=== PATIENT | female | born 1990 | race African-American/Black ===

== ENCOUNTER 2016-07-09 06:27 | Emergency (ER) | payer MEDICAID ==
--- NOTE | 2016-07-09 07:39 | PD ---
HPI Chief Complaint Left leg numbness paresthesia Date Seen: Jul 09, 2016 Travel History International Travel<30 Days: No Contact w/Intl Traveler<30Days: No Known Affected Area: No History of Present Illness HPI This patient is 26-year-old black female at [address] Espinosa for care presents complaining of leg left leg numbness and the strange feelings paresthesias in that leg since 2 AM she says that she can walk on and normally but cannot put full weight on that leg feels that might give out she is not having pain in that extremity in all other extremities within normal limits baby is moving and normal heart rate tracing is reactive with no other is occasional contractions Para: 1 : 2 History Obstetric History Obstetric History One vaginal delivery Family History Family History: Negative Social History Alcohol Use: No Tobacco Use: No Substance Abuse: No Allergies-Medications (Allergen,Severity, Reaction): Coded Allergies: Latex (Verified Allergy, Severe, Hives, 12/04/15) Penicillin (Verified Allergy, Intermediate, RASH, 12/04/15) Amoxicillin (Verified Allergy, Mild, Rash, 12/04/15) Home Meds No Active Prescriptions or Reported Meds Review of Systems General / Constitutional: No: Fever, Weight Gain, Chills, Other Eyes: No: Diploplia, Blurred Vision, Visual changes, Pain, Photophobia HENT: No: Headaches, Vertigo, Lightheadedness Cardiovascular: No: Irregular Rhythm, Chest Pain or Discomfort, Palpitations, Tachycardia, Syncope, Varicosities, Edema, Cyanosis Respiratory: No: Cough, Short of Breath, Other Gastrointestinal: No: Nausea, Vomiting, Diarrhea Genitourinary: No: Decreased Urinary Output, Oliguria Musculoskeletal: Weakness, No: Limited ROM, Cramping, Edema, Pain Skin: No Rash, No Itching, No Dryness, No Lumps, No Change in Pigmentation, No Change in Nails, No Alopecia, No Lesions Neurologic: Focal Abnormalities, No: Weakness, Dizziness, Syncope, Coordination Problem, Headache, Slurred Speech, Seizures Psychiatric: No: Depression, Suicidal Ideations, Homicidal Ideation Endocrine: No: Heat Intolerance, Cold Intolerance, Polydipsia, Polyuria, Other Physical Exam Narrative GENERAL: Well-nourished, well-developed patient. SKIN: Warm and dry. HEAD: Normocephalic and atraumatic. EYES: No scleral icterus. No injection or drainage. ENT: No nasal drainage noted. Mucous membranes pink. Airway patent. NECK: Supple, trachea midline. No JVD. CARDIOVASCULAR: Regular rate and rhythm without murmurs, gallops, or rubs. RESPIRATORY: Breath sounds equal bilaterally. No accessory muscle use. BREASTS: Bilateral exam showed no masses , no retractions, no nipple discharge. ABDOMEN/GI: Abdomen soft, non-tender, bowel sounds present, no rebound, no guarding Gravid to [36-] weeks size Fundal Height: [-35 cm] GENITOURINARY: External Genitalia: intact and normal in appearance BUS glands: [-] Cervix: [-] Dilatation: [1-] Effacement: [50-] Station: [-3] Presentation: [vtx-] Membranes: [intact ] Uterine Contractions: [-irreg] FHT's: Category: [1-] Baseline: [144-] Reactive: [-yes] Variability: [mod-] Decels: [none-] EXTREMITIES: No cyanosis or edema. She has normal pulses in both legs she can lift both legs with muscular strength that is approximately equal BACK: Nontender without obvious deformity. No CVA tenderness. NEUROLOGICAL: Awake and alert. Motor and sensory grossly within normal limits. Five out of 5 muscle strength in all muscle groups. Normal speech. MDM Interpretation(s) This patient is a 26-year-old black female at 37 weeks gestation who presents complaining of left leg numbness tingling paresthesias starting about 2 AM today, she states she's never had this before. From an OB standpoint she is cleared she is ashley irregularly when she is 1 cm 50% -3 vertex and her NST is reactive. And here on OB ED we have evaluated her extremities to the extent we are able she doesn't feel like she needs to go to the main emergency room for this,. That was offered to the patient to send her down for further evaluation. Plan She is to implement bedrest at home as much as she can of the next 2-3 days of heating pad on the affected extremity drink plenty of water to stay hydrated use Tylenol when necessary for discomfort and she is to see Dr. Espinosa on Tuesday which is and 3 days and if she is not improved she certainly will talk to him about that at that time. Diagnosis Diagnosis: Primary Impression: Left leg numbness Disposition: 01 DISCHARGE HOME Condition: Stable Scripts No Active Prescriptions or Reported Meds Patient Instructions: General Instructions Departure Forms: Tests/Procedures Sal Pacheco II, MD Jul 09, 2016 07:39
== END 2016-07-09 08:28 | disposition home or self-care (01) ==
LOC: HOBED 06:27
DX: O26.893 Other specified pregnancy related conditions, third trimester (principal); R20.0 Anesthesia of skin; Z3A.37 37 weeks gestation of pregnancy
CPT/HCPCS: 59025

== ENCOUNTER 2016-07-19 04:18 | Inpatient (IN) | payer MEDICAID ==
[~2016-07-19] VITALS: Ht 165.1 cm; Wt 61.2 kg
[2016-07-19] VITALS (33 sets, daily range): BP systolic 97–136; BP diastolic 54–90; PULSE 20–74; RESP 16–18; TEMP 97–98.3
[2016-07-19] MEDS ORDERED: LACTATED RINGER'S 1000 ML INJ 1,000 ML IV PRN (05:45)
[2016-07-19] MEDS ORDERED: MINERAL OIL 10 ML VIAL TOPICAL PRN (05:45)
[2016-07-19] MEDS ORDERED: LIDOCAINE HCL 1% 50 ML VIAL I-DERMAL PRN (05:45)
[2016-07-19] MEDS ORDERED: SODIUM CHLORID 0.9% 500 ML INJ 500 ML IV PRN (05:45)
[2016-07-19] MEDS ORDERED: OXYTOCIN 30 UNITS-500ML PREMIX 500 ML IV ONE (05:45)
[2016-07-19] MEDS ORDERED: CITRIC ACID-SODIUM CITRATE LIQ 30 ML UDC PO SCH (05:45)
[2016-07-19] MEDS ORDERED: LIDOCAINE HCL 1% 50 ML VIAL INFIL PRN (05:45)
--- NOTE | 2016-07-19 05:45 | HHI.HP ---
History & Physical H&P Patient Name: Maira Mack Unit Number: [id number] Date of : 1990 Patient Status: Registered Emergency Room Attending Doctor: Camacho Pop MD HPI HPI Chief Complaint Contractions Date Seen: Jul 19, 2016 Time Seen: 05:35 Travel History International Travel<30 Days: No Contact w/Intl Traveler<30Days: No Known Affected Area: No History of Present Illness HPI 26-year-old 2 para 1 at 39 weeks who was awakened by contractions. She denies leakage of fluid, bleeding, vaginal discharge or symptoms of herpes. Para: 1 : 2 History (Limited) History Past Medical History Narrative Medical Genital herpes for which she has been on acyclovir suppression for 1 month, no recent outbreaks Recent treatment in June for chlamydia Obstetric History Obstetric History One prior vaginal delivery care with Dr. Espinosa remarkable for positive chlamydia on June 21 which was treated, history of genital herpes for which she is on suppression, she received RhoGAM at 28 weeks for prophylaxis Labs: Rh-, rubella immune, RPR nonreactive, hepatitis B negative, HIV negative, normal 1 hour, hemoglobin 11 Past Surgical History Surgical History: No Previous Surgery Family History Family History: Negative Social History Alcohol Use: No Tobacco Use: Yes (none 1 month) Substance Abuse: No Allergies-Medications Allergies-Medications (Allergen,Severity, Reaction): Coded Allergies: Latex (Verified Allergy, Severe, Hives, 12/04/15) Penicillin (Verified Allergy, Intermediate, RASH, 12/04/15) Amoxicillin (Verified Allergy, Mild, Rash, 12/04/15) Home Meds No Active Prescriptions or Reported Meds ROS Review of Systems Except as stated in HPI: all other systems reviewed are Neg Physical Exam Physical Exam Narrative GENERAL: Well-nourished, well-developed patient. SKIN: Warm and dry. HEAD: Normocephalic and atraumatic. EYES: No scleral icterus. No injection or drainage. ENT: No nasal drainage noted. Mucous membranes pink. Airway patent. NECK: Supple, trachea midline. No JVD. CARDIOVASCULAR: Regular rate and rhythm without murmurs, gallops, or rubs. RESPIRATORY: Breath sounds equal bilaterally. No accessory muscle use. ABDOMEN/GI: Abdomen soft, non-tender, bowel sounds present, no rebound, no guarding Gravid to [-] weeks size Fundal Height: [-] GENITOURINARY: External Genitalia: intact and normal in appearance BUS glands: [-] Cervix: [-] Dilatation: [3-] Effacement: [-80] Station: [0-] Presentation: [-Vertex] Membranes: [intact Uterine Contractions: [Every 2-3-] FHT's: Category: [1-] Baseline: [-] Reactive: [-] Variability: [-] Decels: [-] EXTREMITIES: No cyanosis or edema. BACK: Nontender without obvious deformity. No CVA tenderness. NEUROLOGICAL: Awake and alert. Motor and sensory grossly within normal limits. Five out of 5 muscle strength in all muscle groups. Normal speech. Data Data Data Vital Signs Reviewed: Yes MDM MDM Medical Record Reviewed: Yes Narrative Course / MDM Assessment: 26-year-old 2 para 1 at 39 weeks in early labor Plan: Admit for labor management Scripts No Active Prescriptions or Reported Meds Camacho Pop MD Jul 19, 2016 05:44 Camacho Pop MD Jul 19, 2016 05:45
[2016-07-19] MEDS ORDERED: SODIUM CHLOR 0.9% 1000 ML INJ 1,000 ML IV PRN (06:05)
[2016-07-19] MEDS ORDERED: CALNTAB (06:10)
[2016-07-19] MEDS ORDERED: ACYC400T PO (06:10)
[2016-07-19 06:20] LABS: BLOOD, URINE NEG (NEG); GLUCOSE,URINE NEG (NEG); KETONE, URINE NEG (NEG); MUCUS URINE FEW /lpf (OCC); NITRITE,URINE NEG (NEG); PH, URINE 7.5 (5.0-8.5); SQUAMOUS EPITHELIAL CELL URINE 1 /hpf (0-5); TRANSITIONAL EPI CELLS, URINE <1 /hpf; URINE COLOR LIGHT-YELLOW (YELLW/STRAW)
[2016-07-19 06:21] LABS: COMMENT (UR) CULT NOT INDICATED; CULTURE IF INDICATED CULT NOT INDICATED
[2016-07-19] MEDS: LACTATED RINGER'S 1000 ML INJ 1,000 ML IV SCH ×2 (06:25→09:20)
[2016-07-19 06:50] LABS: AUTOMATED NEUTROPHIL # 10.8 TH/MM3 (1.8-7.7); BASOPHIL % 0.1 % (0.0-2.0); EOSINOPHIL # 0.2 TH/MM3 (0-0.4); HEMATOCRIT 35.4 % (35.0-46.0); HEMO FLAGS DIFF FINAL; LYMPH % 17.5 % (9.0-44.0); LYMPHOCYTE # 2.6 TH/MM3 (1.0-4.8); MEAN CELL VOLUME 85.7 FL (80.0-100.0); MEAN CORPUSCULAR HEMOGLOBIN 28.7 PG (27.0-34.0); MEAN CORPUSCULAR HGB CONC 33.5 % (32.0-36.0); MONO % 9.7 % (0.0-8.0); NEUT % 71.7 % (16.0-70.0); PLATELET COUNT 205 TH/MM3 (150-450); RED BLOOD COUNT 4.13 MIL/MM3 (4.00-5.30); RED CELL DISTRIBUTION WIDTH 13.3 % (11.6-17.2)
--- NOTE | 2016-07-19 08:41 | PD.LABORPN ---
Subjective Subjective pat came in labor at 38 weeks. GBS neg and Chlamydia neg and HSV on Symptoms Objective Vital Signs Vital Signs Date Time Temp Pulse Resp B/P Pulse Ox O2 Delivery O2 Flow Rate FiO2 07/19/16 08:17 68 107/64 07/19/16 08:15 20 16 07/19/16 07:00 66 100/62 07/19/16 06:59 97.6 18 Objective Pelvic Exam: Cervix: [-] Dilatation: 3 Effacement: 70 Station: -2 Presentation: vtx Membranes: SROM Uterine Contractions: Q2 FHT's: Category: 1 Baseline: [-] Reactive: [-] Variability: [-] Decels: [-] Assessment/Plan Assessment and Plan 38 week IUP AROM meconium moderate Shahzad Wong MD Jul 19, 2016 08:41
[2016-07-19] MEDS ORDERED: OXYTOCIN 30 UNITS-500ML PREMIX 500 ML IV SCH (09:00)
[2016-07-19 11:30] LABS: AMPHETAMINE, URINE NEG (NEG); BARBITURATES, URINE NEG (NEG); COCAINE, URINE NEG (NEG)
[2016-07-19] MEDS ORDERED: fentaNYL 2MCG-BUPIV 0.125% INJ 100 ML ONE (11:50)
--- NOTE | 2016-07-19 13:10 | PD.OB.DELI ---
Delivery Date: Jul 19, 2016 Anesthesia: Epidural Episiotomy: None Vaginal Delivery: Normal, Spontaneous Presentation: Occiput anterior Nuchal Cord: None Delayed cord clamping (45 sec): Yes : Female, Single One Minute : 9 Five Minute : 9 Care: Responded to stimulation Placenta: Spontaneous delivery, Intact, 3 vessel cord Laceration: No lacerations Shahzad Wong MD Jul 19, 2016 13:10
[2016-07-19] MEDS ORDERED: ONDANSETRON ODT 4 MG TAB PO PRN (13:15)
[2016-07-19] MEDS ORDERED: ALUMINUM/MAGNESIUM/SIMETH 30 ML CUP PO PRN (13:15)
[2016-07-19] MEDS ORDERED: WITCH HAZEL 50%/GLYCERIN 12.5% 40 PAD JAR TOPICAL PRN (13:15)
[2016-07-19] MEDS ORDERED: SODIUM CHLORIDE 0.9% FLUSH 5 ML FLUSH IV PRN (13:15)
[2016-07-19] MEDS ORDERED: BENZOCAINE 20% TOPICAL SPRAY 60 ML CAN TOPICAL PRN (13:15)
[2016-07-19] MEDS ORDERED: ZOLPIDEM TARTRATE 5 MG TAB PO PRN (13:15)
[2016-07-19 14:05] LABS: CHLAMYDIA PCR NOT DETECTED (NOT DETECT); NEISSERIA PCR NOT DETECTED (NOT DETECT)
[2016-07-19] MEDS ORDERED: DIPHTH/TETANUS/ACEL PERTUSSIS (BOOSTER) 0.5 ML VIAL/PFS IM ONE ×2 (16:00→20:30)
[2016-07-19] MEDS ORDERED: fentaNYL 2MCG-BUPIV 0.125% INJ 100 ML EPIDURAL SCH (16:00)
[2016-07-19] MEDS ORDERED: DO NOT ADMINISTER ANTICOAGULANTS XX PRN (16:00)
[2016-07-19] MEDS ORDERED: NO SYSTEM NARCOTICS XX PRN (16:00)
[2016-07-19] MEDS ORDERED: ePHEDrine/NS 50 MG/5 ML SYR IV PRN (16:00)
[2016-07-19] MEDS ORDERED: MEASLES, MUMPS, RUBELLA VACCINE 0.5 ML VIAL SQ ONE (16:00)
[2016-07-19] MEDS: IBUPROFEN 600 MG TAB PO PRN (17:21)
[2016-07-19] MEDS: ACETAMINOPHEN 325 MG TAB PO PRN (20:10)
[2016-07-19] MEDS ORDERED: SODIUM CHLORIDE 0.9% FLUSH 5 ML FLUSH IV SCH (21:00)
[2016-07-20] MEDS: IBUPROFEN 600 MG TAB PO PRN ×2 (00:35→07:50)
[2016-07-20] MEDS: ACETAMINOPHEN 325 MG TAB PO PRN (07:50)
[2016-07-20] MEDS: DOCUSATE SODIUM 50 MG/SENNA 8.6 MG TAB PO PRN (07:50)
[2016-07-20 08:00] VITALS: BP 105/60; PULSE 59; RESP 16; TEMP 98
--- NOTE | 2016-07-20 09:51 | HHI.OB ---
Subjective Post Day: 1 Remarks doing well Objective Vitals/I&O Vital Signs Date Time Temp Pulse Resp B/P Pulse Ox O2 Delivery O2 Flow Rate FiO2 07/20/16 08:00 98.0 59 16 105/60 07/19/16 19:45 98.3 66 18 122/69 07/19/16 15:40 97.9 69 18 97/60 07/19/16 14:30 61 114/68 07/19/16 14:15 71 115/89 07/19/16 14:02 18 07/19/16 14:01 66 114/67 07/19/16 13:15 97.0 07/19/16 13:09 18 07/19/16 13:01 71 111/71 07/19/16 12:30 72 07/19/16 12:30 69 124/79 07/19/16 12:25 71 122/63 07/19/16 12:25 73 07/19/16 12:20 68 07/19/16 12:20 71 122/66 07/19/16 12:17 16 07/19/16 12:15 128/74 07/19/16 12:15 71 07/19/16 12:11 66 124/68 07/19/16 12:10 136/79 07/19/16 12:10 67 07/19/16 12:05 71 07/19/16 12:05 133/79 07/19/16 12:00 67 124/90 07/19/16 11:55 72 07/19/16 11:55 123/81 07/19/16 11:52 66 121/74 07/19/16 11:24 67 114/71 07/19/16 11:21 97.8 07/19/16 11:21 18 07/19/16 10:53 18 07/19/16 10:45 18 07/19/16 10:41 63 108/68 07/19/16 10:15 16 07/19/16 10:02 74 98/54 Objective Remarks GENERAL: Well-nourished, well-developed patient. ABDOMEN/GI: Abdomen soft, non-tender. Fundus: Firm, non-tender at umbilicus. GENITOURINARY: Light to moderate bleeding. EXTREMITIES: No cyanosis or edema, non-tender, without signs of DVT. Medications and IVs Current Medications Medications (Trade) Dose Ordered Sig/Vance Route Start Time Stop Time Status Last Admin (NS Flush) 2 ml BID IV 07/19/16 21:00 (NS Flush) 2 ml UNSCH PRN IV 07/19/16 13:15 (Tylenol) 650 mg Q4H PRN PO 07/19/16 13:15 07/20/16 07:50 (Motrin) 600 mg Q6H PRN PO 07/19/16 13:15 07/20/16 07:50 (Americaine 20% Top Spr) 1 spray Q4H PRN TOPICAL 07/19/16 13:15 07/20/16 07:50 (Tucks Pads) 1 applic QID PRN TOPICAL 07/19/16 13:15 07/20/16 07:50 (Leatha-Colace) 2 tab Q12H PRN PO 07/19/16 13:15 07/20/16 07:50 (Ambien) 5 mg HS PRN PO 07/19/16 13:15 (Mag-Al Plus Susp Liq) 15 ml Q8H PRN PO 07/19/16 13:15 (Zofran Odt) 4 mg Q6H PRN PO 07/19/16 13:15 Miscellaneous Information No systemic narcotics to be given except... UNSCH PRN XX 07/19/16 16:00 07/20/16 15:59 Miscellaneous Information DO NOT ADMINISTER ANY ANTICOAGUL... UNSCH PRN XX 07/19/16 16:00 07/20/16 15:59 (fentaNYL 2MCG-BUPIV 0.125% INJ) 100 ml @ 0 mls/hr TITRATE EPIDURAL 07/19/16 16:00 (ePHEDrine/NS 50 MG/5 ML SYR) 10 mg UNSCH PRN IV 07/19/16 16:00 07/20/16 15:59 (Flu (Quadrivalent) Vaccine Inj) 0.5 ml ONCE ONCE IM 07/20/16 10:00 07/20/16 10:01 07/19/16 20:59 Assessment/Plan Problem List: (1) Spontaneous vaginal delivery Discharge Planning doing well Shahzad Wong MD Jul 20, 2016 09:51
--- NOTE | 2016-07-20 09:52 | HHI.DCPOC ---
Discharge Care Plan Diagnosis: (1) Spontaneous vaginal delivery Report Symptoms to Your Doctor -Temperate above 100.5 degrees -Redness, of incision or excessive or foul smelling drainage -Unusual pain or calf pain -Increased vaginal bleeding -Painful or difficulty urinating -Feelings of extreme sadness or anxiety after 2 weeks Goals to Promote Your Health * To prevent worsening of your condition and complications * To maintain your health at the optimal level Directions to Meet Your Goals Take your medications as prescribed Follow your dietary instruction Follow activity as directed Ensure plenty of rest for recovery Drink fluids for hydration Keep your appointments as scheduled Take your immunizations and boosters as scheduled If your symptoms worsen call your PCP, if no PCP go to Urgent Care Center or Emergency Room Smoking is Dangerous to Your Health. Avoid second hand smoke Call the 24-hour crisis hotline for domestic abuse at Shahzad Wong MD Jul 20, 2016 09:52
[2016-07-20] MEDS ORDERED: INFLUENZA VIRUS VACCINE (QUADRIVALENT) 0.5 ML SYR IM ONE (10:00)
[2016-07-20] MEDS: oxyCODONE/ACETAMINOPHEN 5 MG/325 MG TAB PO PRN ×3 (12:05→20:36)
[2016-07-20] MEDS: IBUPROFEN 800 MG TAB PO PRN ×2 (13:53→20:37)
[2016-07-20 19:17] VITALS: BP 98/56; PULSE 72; RESP 18; TEMP 98.2
[2016-07-21] MEDS: IBUPROFEN 800 MG TAB PO PRN ×2 (02:37→09:05)
[2016-07-21] MEDS: oxyCODONE/ACETAMINOPHEN 5 MG/325 MG TAB PO PRN ×2 (02:37→09:05)
[2016-07-21] MEDS: DOCUSATE SODIUM 50 MG/SENNA 8.6 MG TAB PO PRN (02:38)
--- NOTE | 2016-07-21 08:07 | HHI.OB ---
Subjective Post Day: 2 Remarks doing well Objective Vitals/I&O Vital Signs Date Time Temp Pulse Resp B/P Pulse Ox O2 Delivery O2 Flow Rate FiO2 07/20/16 19:17 98.2 72 18 98/56 Objective Remarks GENERAL: Well-nourished, well-developed patient. ABDOMEN/GI: Abdomen soft, non-tender. Fundus: Firm, non-tender at umbilicus. GENITOURINARY: Light to moderate bleeding. EXTREMITIES: No cyanosis or edema, non-tender, without signs of DVT. Medications and IVs Current Medications Medications (Trade) Dose Ordered Sig/Vance Route Start Time Stop Time Status Last Admin (NS Flush) 2 ml BID IV 07/19/16 21:00 (NS Flush) 2 ml UNSCH PRN IV 07/19/16 13:15 (Tylenol) 650 mg Q4H PRN PO 07/19/16 13:15 07/20/16 07:50 (Americaine 20% Top Spr) 1 spray Q4H PRN TOPICAL 07/19/16 13:15 07/20/16 07:50 (Tucks Pads) 1 applic QID PRN TOPICAL 07/19/16 13:15 07/20/16 07:50 (Leatha-Colace) 2 tab Q12H PRN PO 07/19/16 13:15 07/21/16 02:38 (Ambien) 5 mg HS PRN PO 07/19/16 13:15 (Mag-Al Plus Susp Liq) 15 ml Q8H PRN PO 07/19/16 13:15 Ondansetron HCl 4 mg 4 mg Q6H PRN PO 07/19/16 13:15 (fentaNYL 2MCG-BUPIV 0.125% INJ) 100 ml @ 0 mls/hr TITRATE EPIDURAL 07/19/16 16:00 (Motrin) 800 mg Q6H PRN PO 07/20/16 13:15 07/21/16 02:37 (Percocet 5-325 Mg) 1 tab Q4H PRN PO 07/20/16 10:00 07/21/16 02:37 Assessment/Plan Problem List: (1) Spontaneous vaginal delivery Discharge Planning [facility] Shahzad Wong MD Jul 21, 2016 08:07
[2016-07-21] MEDS ORDERED: OXYC1TAB63 PO (08:08)
--- NOTE | 2016-07-21 08:10 | HHI.DS ---
Admission Date Jul 19, 2016 at 05:37 Discharge Date: Jul 21, 2016 Admitting Diagnosis Diagnosis: (1) Spontaneous vaginal delivery Diagnosis: Principal Delivery Date: Jul 19, 2016 Vaginal Delivery: Normal, Spontaneous Infant: Female, Single Brief History 26-year-old 2 para 1 at 39 weeks who was awakened by contractions. She denies leakage of fluid, bleeding, vaginal discharge or symptoms of herpes. Hospital Course doing well then 2 days PP stable for DC home Pt Condition on Discharge: Good Discharge Disposition: Discharge Home Discharge Instructions Diet Instructions: As Tolerated, No Restrictions Activities You Can Perform: Pelvic Rest Activities to Avoid: Driving for 24 hrs Follow up Referrals: [facility] - 2 Weeks @ [facility] with Shahzad Wong MD New Medications: Oxycodone-Acetaminophen (Oxycodone-Acetaminophen) 5-325 mg Tab 1 TAB PO Q4H PRN PAIN SCALE 1 TO 10 #20 TAB Continued Medications: Vitamin (Calna) 1 Tab Tab 1 DAILY Discontinued Medications: Acyclovir (Acyclovir) 400 Mg Tab 400 MG PO BID Mgmt Viral Infection Ref 0 TAB Shahzad Wong MD Jul 21, 2016 08:09
[2016-07-21 09:03] VITALS: BP 102/67; PULSE 74; RESP 16; TEMP 98
== END 2016-07-21 11:47 | disposition home or self-care (01) | DRG 774 ==
LOC: HOBED 04:18 → H2EB 05:37 → H1EA 15:14
PROVIDERS: ADMIT Obstetrics & Gynecology; ATTEND Obstetrics & Gynecology
PROC: 10E0XZZ Delivery of Products of Conception, External Approach (ICD-10-PCS; principal; 2016-07-19)
PROC: 3E0S3CZ (ICD-10-PCS; 2016-07-19)
PROC: 00HU33Z Insertion of Infusion Device into Spinal Canal, Percutaneous Approach (ICD-10-PCS; 2016-07-19)
DX: O98.32 Other infections with a predominantly sexual mode of transmission complicating childbirth (principal); O98.813 Other maternal infectious and parasitic diseases complicating pregnancy, third trimester; A60.00 Herpesviral infection of urogenital system, unspecified; O77.0 Labor and delivery complicated by meconium in amniotic fluid; O99.333 Smoking (tobacco) complicating pregnancy, third trimester; Z3A.39 39 weeks gestation of pregnancy; Z37.0 Single live birth; Z23 Encounter for immunization
CPT/HCPCS: 80307; 81001; 85025; 86900; 86901; 87491; 87591; 90686; 90715; 99285; J2590; J3010; J7120; Q2038

== ENCOUNTER 2016-08-19 00:07 | Emergency (ER) | payer MEDICAID ==
[~2016-08-19] VITALS: Ht 162.6 cm; Wt 54.0 kg
[~2016-08-19 00:07] MED LIST: CALNTAB; OXYC1TAB63 PO
[2016-08-19 00:12] VITALS: BP 117/72; PULSE 81; RESP 14; TEMP 97.5; O2SAT 96
[2016-08-19] MEDS ORDERED: SERT-132 PO (00:42)
--- NOTE | 2016-08-19 00:49 | PD ---
HPI Chief Complaint: Injury Time Seen by Provider: 00:45 Travel History International Travel<30 days: No Contact w/Intl Traveler<30days: No Traveled to known affect area: No History of Present Illness HPI Patient comes in complaining of left foot pain that began Tuesday night when she tripped running up some stairs. Patient states yesterday it started becoming red and inflamed. Patient tried soaking in Epsom salts minimal to no relief of her symptoms. Patient reports it iced as help with her pain. Patient reports pain is primarily over the lateral aspect of her left foot is aching burning in nature. Pain is worse with standing or walking. Denies any numbness or tingling, fevers, drug use, , or other known trauma. PFSH Past Medical History Anxiety: Yes Depression: Yes (POST DEPRESSION) Diminished Hearing: No Genitourinary: Yes (GENITAL HERPES) Integumentary: Yes ?: Not LMP: DELIVERED 07/19/16 : 1 Para: 1 Miscarriage: 0 : 0 Ectopic : No Ovarian Cysts: No Tubal Ligation: No Past Surgical History Hysterectomy: No Social History Alcohol Use: Yes (SOCIALLY) Tobacco Use: Yes (1/2PPD) Substance Use: No Allergies-Medications (Allergen,Severity, Reaction): Coded Allergies: Latex (Verified Allergy, Severe, Hives, 08/19/16) Penicillin (Verified Allergy, Intermediate, RASH, 08/19/16) Amoxicillin (Verified Allergy, Mild, Rash, 08/19/16) Reported Meds & Prescriptions Reported Meds & Active Scripts Active Ibuprofen 800 Mg Tab 800 Mg PO Q8H PRN Bactrim DS (Sulfamethoxazole-Trimethoprim) 800-160 Mg Tab 1 Tab PO BID Reported Sertraline (Sertraline HCl) 50 Mg Tab 50 Mg PO DAILY Review of Systems Except as stated in HPI: all other systems reviewed are Neg Physical Exam Narrative GENERAL: Well-developed, well nourished, in no acute distress, and non-ill appearing. SKIN: Warm and dry. Patient area of the dorsal aspect of her left foot is erythematous and febrile to palpation. There is no crepitus, induration, or fluctuation. It is tender to palpation. Patient also has noted what appears to be tract miller versus bug bites versus other noted bilateral feet dorsal aspect. There is also a small abrasion noted over the distal fifth metatarsal dorsal aspect. HEAD: Atraumatic. Normocephalic. EYES: Pupils equal and round. EOMI. No scleral icterus. No injection or drainage. ENT: No nasal bleeding or discharge. Mucous membranes pink and moist. NECK: Trachea midline. Supple. No nuclear rigidity. CARDIOVASCULAR: Dorsal pulses 2+ intact and equal bilaterally. Capillary refill less than 2 seconds. RESPIRATORY: No accessory muscle use. No respiratory distress. MUSCULOSKELETAL: No obvious deformities. No clubbing. No cyanosis. No edema, but some soft tissue swelling over the dorsal aspect left foot. Full range of motion. Ankle: Neagative anterior draw and Figueredo test. Negative Nicolle's sign. No laxity noted with passive inversion and eversion of BL ankles. Negative squeeze test. Pulses equal BL distal to injury. Capillary refill less than 2 seconds distal to injury and equal BL. Sensation equal BL 1st web space. FROM of toes distal to injury and equal BL. NV intact distal to injury and equal BL. Dorsal pulses equal BL. Patient reports tenderness to palpation of dorsal aspect left foot over fourth and fifth metatarsals. NEUROLOGICAL: Awake and alert. No obvious cranial nerve deficits. Motor grossly within normal limits. Normal speech. PSYCHIATRIC: Appropriate mood and affect; insight and judgment normal. Data Data Last Documented VS Vital Signs Date Time Temp Pulse Resp B/P Pulse Ox O2 Delivery O2 Flow Rate FiO2 08/19/16 00:42 16 08/19/16 00:12 97.5 81 117/72 96 Room Air Orders Foot, Complete (Jur2azp) (08/19/16 ) Ibuprofen (Motrin) (08/19/16 01:15) Sulfamet-Trimeth Ds 800-160 Mg (Bactrim (08/19/16 01:15) Splint Or Brace Apply/Monitor (08/19/16 01:30) [facility] Medical Decision Making Medical Screen Exam Complete: Yes Emergency Medical Condition: Yes Differential Diagnosis Fracture, sprain, cellulitis, abscess, other Narrative Course The patient sustained a fracture. The distal extremity appears neurovascularly intact, without evidence of neurovascular injury nor compartment syndrome. Tendon exam also was intact. The effected limb was splinted. The patient was discharged on pain medication along with fracture and splint care instructions and given warnings for vascular compromise. The patient is was given strict instructions to follow up with maintenance technician. The patient agrees with plan. The patient has secondary infection of cellulitis. There is no evidence of necrotizing fasciitis/ Fourniers at this time, pain is proportional and no crepitus is noted. There is no evidence of abscess as well at this time. The patient will be discharged on antibiotics. The patient was given signs and symptoms warnings for worsening infection, such as spreading of redness, increasing pain, and/or swelling, associated heat, or fever and instructed to return immediately if these signs or symptoms worsen. The patient is to follow up with physician in 2 days for recheck or return here in 2 days for recheck if unable to establish outpatient follow up. Sooner if worsens or as needed. The patient agrees with plan. Area was outlined with skin marking pen by RN prior to discharge. Patient in no obvious distress upon re-evaluation. All pertinent Radiology result(s) discussed with patient. Patient was asked if they wanted to speak to my attending, which the patient did not wish to do at this time. Any questions/ concerns in reference to patient diagnosis/condition discussed and clarified prior to patient's discharge. Reinforced sheer importance of close follow up with patient's primary physician or primary care clinic and maintenance technician. Instructed patient to return to ED immediately, if symptoms return/worsen. Pt showed understanding of above instructions. Further instructions and recommendations were detailed in discharge paperwork. Pt ambulated without difficulty out of ED at discharge with crutches. Diagnosis Primary Impression: Hebert fracture Qualified Code: S92.352A - Hebert fracture, left, closed, initial encounter Additional Impression: Cellulitis Qualified Code: L03.818 - Cellulitis of other specified site Referrals: Aida Lopez DPM Patient Instructions: Cellulitis (GEN), Crutch Instructions (ED), Foot Fracture in Adults (ED), General Instructions, Splint Care (ED) Additional Instructions: Follow-up with podiatry in 24-48 hours for reevaluation. Follow with primary care doctor return here in 2 days for recheck of cellulitis. Weightbearing as tolerated on your left foot. Apply ice to affected area 20 minutes per hour as needed for pain and swelling. Take all medication as prescribed. Return to the emergency department if symptoms get worse. Med/Other Pt SpecificInfo: Prescription(s) given Scripts Ibuprofen 800 Mg [id number] Mg PO Q8H PRN (PAIN SCALE 1 TO 10) #21 TAB Ref 0 Prov:Constantine El MD 08/19/16 Sulfamethoxazole-Trimethoprim (Bactrim DS)800-160 Mg Tab1 Tab PO BID #20 TAB Ref 0 Prov:Constantine El MD 08/19/16 Disposition: 01 DISCHARGE HOME Condition: Stable Jeff Perez Aug 19, 2016 00:49
[2016-08-19] MEDS ORDERED: SULFAMETHOXAZOLE-TRIMETHOPRIM DS 800-160 MG TAB PO ONE (01:15)
[2016-08-19] MEDS ORDERED: IBUPROFEN 800 MG TAB PO ONE (01:15)
--- NOTE | 2016-08-19 01:24 | RADRPT ---
EXAM DATE/TIME: 08/19/2016 00:44 [facility] COMPARISON: No previous studies available for comparison. INDICATIONS : Left foot pain and swelling post twisting motion as falling down a set of stairs. MEDICAL HISTORY : None. SURGICAL HISTORY : None. ENCOUNTER: Initial ACUITY: 2 days PAIN SCORE: 6/10 LOCATION: Left foot FINDINGS: Three view examination of the left foot demonstrates avulsion fracture of the base of the fifth metat arsal with approximately 9 mm of displacement. CONCLUSION: Displaced Alexei's type fracture at the base of the fifth metatarsal. Montez Garcia MD on August 19, 2016 at 1:21 Board Certified Radiologist. This report was verified electronically.
[2016-08-19] MEDS ORDERED: IBUP800T23 PO (01:34)
[2016-08-19] MEDS ORDERED: BACT800T5 PO (01:34)
== END 2016-08-19 01:43 | disposition home or self-care (01) ==
LOC: NEPB 00:07
DX: S92.352A Displaced fracture of fifth metatarsal bone, left foot, initial encounter for closed fracture (principal); L03.818 Cellulitis of other sites; F17.210 Nicotine dependence, cigarettes, uncomplicated; W18.43XA Slipping, tripping and stumbling without falling due to stepping from one level to another, initial encounter; Y92.009 Unspecified place in unspecified non-institutional (private) residence as the place of occurrence of the external cause
CPT/HCPCS: 73630; 99283; E0113; L3260

== ENCOUNTER 2016-08-19 12:34 | Emergency (ER) | payer MEDICAID ==
[~2016-08-19] VITALS: Ht 162.6 cm; Wt 55.0 kg
[~2016-08-19 12:34] MED LIST changes: +BACT800T5 PO; +IBUP800T23 PO; +SERT-132 PO
[2016-08-19 12:35] VITALS: BP 111/60; PULSE 75; RESP 14; TEMP 98.1; O2SAT 98
--- NOTE | 2016-08-19 13:20 | PD ---
HPI Chief Complaint: Injury Time Seen by Provider: 13:14 Travel History International Travel<30 days: No Contact w/Intl Traveler<30days: No Traveled to known affect area: No History of Present Illness HPI 26-year-old female presents to the emergency department for splint placement. Patient was seen last night was diagnosed with a Hebert fracture that is displaced. At that time, she was placed in a postop shoe. However, was determined that she should be in a posterior short leg splint. The patient returns to have splint placed. She denies any new or worsening symptoms. She denies any new injury. She states that she will follow generator man. She has crutches and has been nonweightbearing. PFSH Past Medical History Anxiety: Yes Depression: Yes (POST DEPRESSION) Diminished Hearing: No Genitourinary: Yes (GENITAL HERPES) Integumentary: Yes ?: Not LMP: 08/2016 : 1 Para: 1 Miscarriage: 0 : 0 Ectopic : No Ovarian Cysts: No Tubal Ligation: No Past Surgical History Hysterectomy: No Social History Alcohol Use: Yes (SOCIALLY) Tobacco Use: Yes (1/2PPD) Substance Use: No Allergies-Medications (Allergen,Severity, Reaction): Coded Allergies: Latex (Verified Allergy, Severe, Hives, 08/19/16) Penicillin (Verified Allergy, Intermediate, RASH, 08/19/16) Amoxicillin (Verified Allergy, Mild, Rash, 08/19/16) Reported Meds & Prescriptions Reported Meds & Active Scripts Active Ibuprofen 800 Mg Tab 800 Mg PO Q8H PRN Bactrim DS (Sulfamethoxazole-Trimethoprim) 800-160 Mg Tab 1 Tab PO BID Reported Sertraline (Sertraline HCl) 50 Mg Tab 50 Mg PO DAILY Review of Systems Except as stated in HPI: all other systems reviewed are Neg Physical Exam Narrative GENERAL: Well-developed well-nourished female patient, afebrile. SKIN: Warm and dry. Ecchymosis and swelling noted to left foot. HEAD: Normocephalic. Atraumatic. EYES: No scleral icterus. No injection or drainage. NECK: Supple, trachea midline. No JVD or lymphadenopathy. CARDIOVASCULAR: Regular rate and rhythm without murmurs, gallops, or rubs. RESPIRATORY: Breath sounds equal bilaterally. No accessory muscle use. Lungs sounds are clear to auscultation. MUSCULOSKELETAL: No cyanosis, or edema. Left pedal pulse 2+. Capillary refill less than 2 seconds to the digits of the left foot. Data Data Last Documented VS Vital Signs Date Time Temp Pulse Resp B/P Pulse Ox O2 Delivery O2 Flow Rate FiO2 08/19/16 12:35 98.1 75 14 111/60 98 MDM Medical Decision Making Medical Screen Exam Complete: Yes Emergency Medical Condition: Yes Medical Record Reviewed: Yes Differential Diagnosis Fracture versus splint placement versus versus Foot pain Narrative Course 26 year old female presents to the emergency department for splint placement to left foot. Patient was seen last night was placed in a postop shoe. However, it was determined she should be placed in a posterior short leg splint. The patient returns to have splint placed. She denies any new complaints. She has crutches and has been nonweightbearing. Posterior short leg still be placed on the left foot. She is to be nonweightbearing and follow up with podiatry. She verbalizes agreement and understanding. The patient was discharged in stable condition with instructions, including return instructions and follow up instructions. Diagnosis Primary Impression: Hebert fracture Qualified Code: S92.352D - Hebert fracture, left, with routine healing, subsequent encounter Referrals: Assistance Coordinator call for appointment Patient Instructions: Foot Fracture in Adults (ED), General Instructions Additional Instructions: Wear splint. Ice for 20 minutes 4-5 times daily. Do not get splint wet. Elevate. Use crutches and be nonweightbearing. Follow-up with podiatry. Return to the emergency department for any acute worsening of symptoms. Med/Other Pt SpecificInfo: No Change to Meds Disposition: 01 DISCHARGE HOME Condition: Stable Melinda Case Aug 19, 2016 13:20
== END 2016-08-19 14:42 | disposition home or self-care (01) ==
LOC: NEPB 12:34
DX: S92.352D Displaced fracture of fifth metatarsal bone, left foot, subsequent encounter for fracture with routine healing (principal); X58.XXXD Exposure to other specified factors, subsequent encounter
CPT/HCPCS: 29515; 99281

== ENCOUNTER 2017-02-08 12:55 | Emergency (ER) | payer MEDICAID ==
[~2017-02-08] VITALS: Ht 165.1 cm; Wt 55.0 kg
[~2017-02-08 12:55] MED LIST changes: -CALNTAB; -OXYC1TAB63 PO
[2017-02-08 12:57] VITALS: BP 118/58; PULSE 80; RESP 16; TEMP 98.4; O2SAT 99
--- NOTE | 2017-02-08 13:07 | PD ---
Physical Exam Time Seen by Provider: 13:04 Narrative 27yo C/o sharp kidney pain ion and off x 1 week. Had urinalysis this morning but was told by Dr. Wong to come to ER if pain worsened. [place] dc, odor, itch. Has been on her period since September. Fever of 101.8 last night. Denies fever. Patient seen in triage. VS reviewed. Patient awaiting bed placement. Data Data Last Documented VS Vital Signs Date Time Temp Pulse Resp B/P (MAP) Pulse Ox O2 Delivery O2 Flow Rate FiO2 02/08/17 12:57 98.4 80 16 118/58 (78) 99 MDM Supervised Visit with RADHA: Susana Borrero Feb 08, 2017 13:07
[2017-02-08 14:33] LABS: AUTOMATED NEUTROPHIL # 4.8 TH/MM3 (1.8-7.7); BASOPHIL % 0.3 % (0.0-2.0); EOSINOPHIL # 0.1 TH/MM3 (0-0.4); EOSINOPHIL % 1.4 % (0.0-4.0); HEMATOCRIT 42.1 % (35.0-46.0); HEMO FLAGS DIFF FINAL; LYMPH % 22.6 % (9.0-44.0); LYMPHOCYTE # 1.7 TH/MM3 (1.0-4.8); MEAN CORPUSCULAR HEMOGLOBIN 29.8 PG (27.0-34.0); MEAN CORPUSCULAR HGB CONC 32.5 % (32.0-36.0); MONO % 10.5 % (0.0-8.0); NEUT % 65.2 % (16.0-70.0); PLATELET COUNT 295 TH/MM3 (150-450); RED BLOOD COUNT 4.57 MIL/MM3 (4.00-5.30); RED CELL DISTRIBUTION WIDTH 14.6 % (11.6-17.2); WHITE BLOOD COUNT 7.3 TH/MM3 (4.0-11.0)
[2017-02-08 14:37] LABS: BLOOD, URINE MOD (NEG); GLUCOSE,URINE NEG (NEG); KETONE, URINE NEG (NEG); NITRITE,URINE NEG (NEG); PH, URINE 6.5 (5.0-8.5); SQUAMOUS EPITHELIAL CELL URINE 1 /hpf (0-5); URINE COLOR LIGHT-YELLOW (YELLW/STRAW)
[2017-02-08 14:39] LABS: COMMENT (UR) CULT NOT INDICATED; CULTURE IF INDICATED CULT NOT INDICATED
--- NOTE | 2017-02-08 14:45 | PD ---
HPI Chief Complaint: Flank/Kidney Pain Time Seen by Provider: 14:44 Travel History International Travel<30 days: No Contact w/Intl Traveler<30days: No Traveled to known affect area: No History of Present Illness HPI 27-year-old female came to the emergency room with history of lower backache on and off for past 1 week and intermittent vaginal bleeding for some time. Patient says that she has an implant in her arm for control and she thinks she could be reacting from that. Her CONCESSION WORKER will have it taken out in few days but he wanted her to come to the emergency room to get a workup done to rule out anything medical. No history of fever or chills. No history of nausea vomiting. No history of foul-smelling vaginal discharge. Vital signs were stable. Patient had a workup done in the triage prior to coming in. Blood test results of back and they're within normal limits. Patient says she has not had this kind of pain prior to this past 1 week. PFSH Past Medical History Narrative Medical List of her past medical, surgical, social and family history is reviewed from the nursing note. Anxiety: Yes Depression: Yes (POST DEPRESSION) Diminished Hearing: No Genitourinary: Yes (GENITAL HERPES) Integumentary: Yes : 1 Para: 1 Miscarriage: 0 : 0 Ectopic : No Ovarian Cysts: No Tubal Ligation: No Past Surgical History Hysterectomy: No Social History Alcohol Use: Yes (SOCIALLY) Tobacco Use: Yes (1/2PPD) Substance Use: No Allergies-Medications (Allergen,Severity, Reaction): Coded Allergies: latex (Unverified Allergy, Severe, Hives, 01/25/17) penicillin G (Unverified Allergy, Intermediate, RASH, 01/25/17) amoxicillin (Unverified Allergy, Mild, Rash, 01/25/17) Comments List of her allergies reviewed from the nursing note. Reported Meds & Prescriptions Reported Meds & Active Scripts Active Ibuprofen 800 Mg Tab 800 Mg PO Q8H PRN Bactrim DS (Sulfamethoxazole-Trimethoprim) 800-160 Mg Tab 1 Tab PO BID Reported Sertraline (Sertraline HCl) 50 Mg Tab 50 Mg PO DAILY Narrative Medication List of her home medications reviewed from the nursing note. Review of Systems Except as stated in HPI: all other systems reviewed are Neg Physical Exam Narrative GENERAL: Awake, alert, no obvious distress SKIN: Focused skin assessment warm/dry. HEAD: Atraumatic. Normocephalic. EYES: Pupils equal and round. No scleral icterus. No injection or drainage. ENT: No nasal bleeding or discharge. Mucous membranes pink and moist. NECK: Trachea midline. No JVD. CARDIOVASCULAR: Regular rate and rhythm. No murmur appreciated. RESPIRATORY: No accessory muscle use. Clear to auscultation. Breath sounds equal bilaterally. GASTROINTESTINAL: Abdomen soft, non-tender, nondistended. Hepatic and splenic margins not palpable. No CVA tenderness. MUSCULOSKELETAL: No obvious deformities. No clubbing. No cyanosis. No edema. NEUROLOGICAL: Awake and alert. No obvious cranial nerve deficits. Motor grossly within normal limits. Normal speech. PSYCHIATRIC: Appropriate mood and affect; insight and judgment normal. Data Data Last Documented VS Vital Signs Date Time Temp Pulse Resp B/P (MAP) Pulse Ox O2 Delivery O2 Flow Rate FiO2 02/08/17 16:18 89 18 120/64 (82) 100 02/08/17 12:57 98.4 Orders Orders Complete Blood Count With Diff (02/08/17 13:07) Comprehensive Metabolic Panel (02/08/17 13:07) Lipase (02/08/17 13:07) Urinalysis - C+S If Indicated (02/08/17 13:07) Ed Urine Pregnancytest Poc (02/08/17 13:07) Labs Laboratory Tests Test 02/08/17 14:05 02/08/17 14:10 02/09/17 17:21 Urine Color LIGHT-YELLOW Urine Turbidity CLEAR Urine pH 6.5 Urine Specific Lyman 1.011 Urine Protein NEG mg/dL Urine Glucose (UA) NEG mg/dL Urine Ketones NEG mg/dL Urine Occult Blood MOD Urine Nitrite NEG Urine Bilirubin NEG Urine Urobilinogen LESS THAN 2.0 MG/DL Urine Leukocyte Esterase NEG Urine WBC 1 /hpf Urine Squamous Epithelial Cells 1 /hpf Microscopic Urinalysis Comment CULT NOT INDICATED White Blood Count 7.3 TH/MM3 Red Blood Count 4.57 MIL/MM3 Hemoglobin 13.7 GM/DL Hematocrit 42.1 % Mean Corpuscular Volume 92.0 FL Mean Corpuscular Hemoglobin 29.8 PG Mean Corpuscular Hemoglobin Concent 32.5 % Red Cell Distribution Width 14.6 % Platelet Count 295 TH/MM3 Mean Platelet Volume 8.1 FL Neutrophils (%) (Auto) 65.2 % Lymphocytes (%) (Auto) 22.6 % Monocytes (%) (Auto) 10.5 % Eosinophils (%) (Auto) 1.4 % Basophils (%) (Auto) 0.3 % Neutrophils # (Auto) 4.8 TH/MM3 Lymphocytes # (Auto) 1.7 TH/MM3 Monocytes # (Auto) 0.8 TH/MM3 Eosinophils # (Auto) 0.1 TH/MM3 Basophils # (Auto) 0.0 TH/MM3 CBC Comment DIFF FINAL Differential Comment Blood Urea Nitrogen 12 MG/DL Creatinine 0.85 MG/DL Random Glucose 85 MG/DL Total Protein 7.5 GM/DL Albumin 4.0 GM/DL Calcium Level 8.7 MG/DL Alkaline Phosphatase 80 U/L Aspartate Amino Transf (AST/SGOT) 6 U/L Alanine Aminotransferase (ALT/SGPT) 15 U/L Total Bilirubin 0.9 MG/DL Sodium Level 142 MEQ/L Potassium Level 3.9 MEQ/L Chloride Level 109 MEQ/L Carbon Dioxide Level 28.6 MEQ/L Anion Gap 4 MEQ/L Estimat Glomerular Filtration Rate 97 ML/MIN Lipase 188 U/L Lab Scanned Report Lab Reports - Other [id number] [facility] Medical Decision Making Medical Screen Exam Complete: Yes Emergency Medical Condition: Yes Medical Record Reviewed: Yes Differential Diagnosis , miscarriage, pelvic pain NOS, back pain and Narrative Course 3:33 PM awaiting for the test. If that is negative patient will be discharged home. I have asked to follow up with her CONCESSION WORKER specialist. Procedures EKG Prior to Arrival: No Diagnosis Primary Impression: Back pain Qualified Codes: M54.9 - Dorsalgia, unspecified; G89.29 - Other chronic pain Referrals: Primary Care Physician Additional Instructions: Please return to the ER if the condition worsens or any other new concerns. Otherwise follow-up with your primary care/CONCESSION WORKER in next couple days. Take Tylenol/Motrin/ibuprofen/Advil [id number] for your pain Med/Other Pt SpecificInfo: No Change to Meds Disposition: 01 DISCHARGE HOME Condition: Stable Emory Roland MD Feb 08, 2017 14:45
[2017-02-08 14:49] LABS: ALT (GPT) 15 U/L (10-53); ANION GAP 4 MEQ/L (5-15); AST (GOT) 6 U/L (15-37); BICARBONATE 28.6 MEQ/L (21.0-32.0); BLOOD UREA NITROGEN 12 MG/DL (7-18); CHLORIDE 109 MEQ/L (98-107); GLOMERULAR FILTRATION RATE 97 ML/MIN (>89); POTASSIUM 3.9 MEQ/L (3.5-5.1); SODIUM (NA) 142 MEQ/L (136-145)
[2017-02-08 14:51] LABS: ALKALINE PHOSPHATASE 80 U/L (45-117); TOTAL BILIRUBIN ADULT 0.9 MG/DL (0.2-1.0)
[2017-02-08 16:18] VITALS: BP 120/64
== END 2017-02-08 16:21 | disposition home or self-care (01) ==
LOC: NEPD 12:55
DX: M54.9 Dorsalgia, unspecified (principal); N93.9 Abnormal uterine and vaginal bleeding, unspecified; F41.9 Anxiety disorder, unspecified; F32.9 Major depressive disorder, single episode, unspecified; Z88.0 Allergy status to penicillin; Z79.1 Long term (current) use of non-steroidal anti-inflammatories (NSAID); Z79.899 Other long term (current) drug therapy
CPT/HCPCS: 80053; 81001; 83690; 84703; 85025; 99283

== ENCOUNTER 2017-09-07 17:27 | Emergency (ER) | payer MEDICAID ==
[~2017-09-07 17:27] MED LIST changes: +IBUP1TAB7 PO; -IBUP800T23 PO
[2017-09-07 17:45] VITALS: BP 118/60; PULSE 76; RESP 16; TEMP 98.2; O2SAT 100
== END 2017-09-07 21:38 | disposition left against medical advice (07) ==
LOC: NED 17:27
DX: Z03.89 Encounter for observation for other suspected diseases and conditions ruled out (principal)
CPT/HCPCS: 99281

== ENCOUNTER 2018-07-29 14:58 | Inpatient (IN) ==
[2018-07-29] MEDS ORDERED: ceFAZolin Inj 2,000 MG in Sodium Chlor 0.9% Inj 80 ML IV.SIG ONE (15:19)
[2018-07-29] MEDS ORDERED: fentaNYL Citrate Inj 100 MCG/2 ML Ampul IV.PUSH PRN ×2 (15:19)
[2018-07-29] MEDS ORDERED: Sod Chloride 0.9% Inj 1,000 ML IV.CONT PRN (15:19)
[2018-07-29] MEDS ORDERED: Sodium Chlor 0.9% Inj 500 ML IV.SIG PRN (15:19)
[2018-07-29] MEDS ORDERED: Naloxone Inj 0.4 MG/ML Vial IV.PUSH PRN ×2 (15:19→17:42)
[2018-07-29] MEDS ORDERED: Oxytocin 30 Units/500ml Premix 30 UNITS/500 ML BAG IV.SIG ONE (15:19)
[2018-07-29] MEDS ORDERED: Citric Acid/Sodium Citrate Liq 30 ML UDC PO SCH (15:30)
--- NOTE | 2018-07-29 15:32 | ED ---
History of Present Illness [place] [facility] [place] Physician: NOT REQUIRED Chief Complaint: Contractions History of Present Illness: This 28 y/o female , EGA 37-38 wks presents to the OB ED with c/o ctxs. She states they started a couple hours ago. +FM, No VB. No LOF. Her only issue during was a C. diff infection in May 2018. She was hospitalized in [place] for 6-7 days. She denies any other probs. She did not complete glucose testing. She began care with Dr. Puentes and then transferred to [facility]. Weeks Gestation:: 38 Para: 2 : 5 Review of Systems All other systems reviewed negative except as stated in HPI PMFSH - History History Provided By: Patient - Medical / Surgical Hx Neg / Unobtainable Surgical History: No Previous Surgery - Medical History Medical History: Medical History (Last Updated 07/29/18 @ 15:24 by Aurelia Terry DO) Herpes simplex - Social History I have reviewed the patient's Social History: Yes - Tobacco History Second Hand Smoke Exposure: Yes Smoking Status: Current every day smoker (1-2 cig/day) Tobacco Type: Cigarettes - Alcohol History How Often Do You Have a Drink Containing Alcohol: Never - Substance Use History Substance History: Active Abuse - Substance Use Type Marijuana Status: Active Last Used: couple days ago - Travel History History of Recent Travel: No Medications and Allergies Allergies Allergy/AdvReac Type Severity Reaction Status Date / Time latex Allergy Severe Hives Unverified 01/25/17 19:17 penicillin G Allergy Intermediate RASH Unverified 01/25/17 19:17 amoxicillin Allergy Mild Rash Unverified 01/25/17 19:17 Home Medications Medication Instructions Recorded Confirmed Type acyclovir 400 mg BID 07/29/18 07/29/18 History hydroxyzine HCl 07/29/18 History Exam Vital signs: Vital Signs 07/29/18 15:12 Temperature 97.9 F Respiratory Rate 18 Narrative: GENERAL: Well-nourished, well-developed patient. SKIN: Warm and dry. HEAD: Normocephalic and atraumatic. EYES: No scleral icterus. No injection or drainage. ENT: No nasal drainage noted. Mucous membranes pink. Airway patent. NECK: Supple, trachea midline. No JVD. CARDIOVASCULAR: Regular rate and rhythm without murmurs, gallops, or rubs. RESPIRATORY: Breath sounds equal bilaterally. No accessory muscle use. ABDOMEN/GI: Abdomen soft, non-tender, bowel sounds present, no rebound, no guarding Gravid GENITOURINARY: External Genitalia: intact and normal in appearance BUS glands: [normal] Cervix: [ant] Dilatation: [7] Effacement: [80] Station: [-1] Presentation: [vtx] Membranes: [intact] Uterine Contractions: [every 3 min] FHT's: Category: [2] Baseline: [140] Reactive: [No] Variability: [Min] Decels: [variable] + accel EXTREMITIES: No cyanosis or edema. BACK: Nontender without obvious deformity. No CVA tenderness. NEUROLOGICAL: Awake and alert. Motor and sensory grossly within normal limits. Five out of 5 muscle strength in all muscle groups. Normal speech. Results - Labs Group B Strep: Negative Assessment and Plan - Diagnosis (1) 38 weeks gestation of Code(s): Z3A.38 - 38 weeks gestation of Status: Acute (2) Uterine contractions during Code(s): O62.2 - Other uterine inertia Status: Acute (3) Drug use affecting in third trimester Code(s): O99.323 - Drug use complicating , third trimester Status: Acute - Plan Admit due to labor Discharge Plan - Physicians Team ED Provider: Aurelia Terry Primary Care Provider: NOT REQUIRED, - Rxs /Orders / Referrals /Forms Prescriptions: No Action acyclovir 400 mg 400 mg BID hydroxyzine HCl - Discharge Instructions Print Language: Kinyarwanda
[2018-07-29] MEDS ORDERED: fentaNYL 2MCG-Bupiv 0.125% Epi 150 ML EPIDURAL ONE (15:42)
[2018-07-29] MEDS ORDERED: Diphtheria/Tetanus/Pertussis Vaccine Inj 0.5 ML Syringe IM ONE (16:00)
[2018-07-29] MEDS ORDERED: ceFAZolin 2 GM Premix Inj 2 GM/50 ML PIGGYBACK IV.SIG ONE ×2 (16:00→18:30)
[2018-07-29] MEDS ORDERED: Measles/Mumps/Rubella Vaccine Inj 0.5 ML Vial SQ ONE (16:00)
[2018-07-29 16:20] LABS: Baso % (Auto) 0.2 % (0.0-2.0); Eos # (Auto) 0.1 th/mm3 (0.0-0.4); Eos % (Auto) 0.7 % (0.0-4.0); Hematocrit 31.6 % (35.0-46.0); Hemoglobin 10.2 gm/dL (11.6-15.3); Lymph # (Auto) 1.6 th/mm3 (1.0-4.8); Lymph % (Auto) 13.9 % (9.0-44.0); Mean Corpuscular HGB Conc 32.4 % (32.0-36.0); Mean Corpuscular Hemoglobin 26.4 pg (27.0-34.0); Mean Corpuscular Volume 81.4 fL (80.0-100.0); Mean Platelet Volume 9.6 fL (7.0-11.0); Mono # (Auto) 1.1 th/mm3 (0.0-0.9); Mono % (Auto) 9.4 % (0.0-8.0); Neut # (Auto) 8.8 th/mm3 (1.8-7.7); Neut % (Auto) 75.8 % (16.0-70.0); Platelet Count 230 th/mm3 (150-450); Red Blood Count 3.88 mil/mm3 (4.00-5.30); Red Cell Distribution Width 16.1 % (11.6-17.2); White Blood Count 11.6 th/mm3 (4.0-11.0)
[2018-07-29] MEDS ORDERED: Sodium Chlor 0.9% Inj 10 ML ONE (16:42)
[2018-07-29] MEDS ORDERED: Lidocaaine 1.5%/Epinephrine 1:200,000 PF Inj 5 ML Amp ONE (16:42)
[2018-07-29] MEDS ORDERED: Lidocaine PF 1% Inj 5 ML Vial ONE (16:42)
[2018-07-29] MEDS ORDERED: fentaNYL Citrate Inj 100 MCG/2 ML Ampul EPIDURAL ONE (17:00)
[2018-07-29] MEDS ORDERED: fentaNYL 2MCG-Bupiv 0.125% Epi 150 ML EPIDURAL PRN (17:00)
[2018-07-29] MEDS ORDERED: Influenza (Quadrivalent) Vaccine 0.5 ML Syringe IM ONE (17:15)
[2018-07-29] MEDS ORDERED: Acetaminophen 325 MG Tablet PO PRN (17:42)
[2018-07-29] MEDS ORDERED: Witch Hazel 50%/Glyderin 12.5% 40 Pad Jar RECTAL PRN (17:42)
[2018-07-29] MEDS ORDERED: Bisacodyl 10 MG Supp RECTAL PRN (17:42)
[2018-07-29] MEDS ORDERED: Benzocaine 20% Top Spray 60 ML Can TOPICAL PRN (17:42)
[2018-07-29] MEDS ORDERED: Zolpidem Tartrate 5 MG Tablet PO PRN (17:42)
[2018-07-29] MEDS ORDERED: Oxytocin 30 Units/500ml Premix 30 UNITS/500 ML BAG IV.CONT PRN (17:42)
--- NOTE | 2018-07-29 18:02 | P.OBDELI ---
Weeks Gestation: 38 Patient Started Active Labor: Yes Medical Induction of Labor: No Artificial Rupture of Membrane: No Anesthesia: Epidural Episiotomy: none Vaginal Delivery: Spontaneous Presentation: Vertex Nuchal Cord: x1 Delayed Cord Clamping (45 sec): Yes Placenta: Manual removal (- retained placenta manually removed) Laceration: None Estimated blood loss (mL): 100 Infant: Male Male A Delivery Date: 07/29/18 Weight: 2.275 kg score (1 min): 8 score (5 min): 9
[2018-07-29 18:06] LABS: Amorphous Sediment,Urine Many /hpf; Bacteria,Urine Occasional /hpf; Bilirubin,Urine Negative (Negative); Clarity,Urine Cloudy (Clear); Color,Urine Yellow (Yellw/Straw); Glucose,Urine (UA) Negative (Negative); Leukocyte Esterase,Urine Negative (Negative); Mucus,Urine Few /lpf (Occasional); Nitrite,Urine Negative (Negative); Specific Gravity,Urine 1.024 (1.002-1.035); Squamous Epithelial Cell,Urine 1 /hpf (0-5)
[2018-07-29] MEDS: Senna/Docusate Sodium 8.6/50 MG Tablet PO SCH (21:45)
--- NOTE | 2018-07-30 08:44 | P.PNOB ---
Subjective Interval history: Patient is a 28-year-old delivered at 38 weeks and 2 days. Patient is day 1 after . Patient's pain is well-controlled. Patient reports eating and drinking without any nausea or vomiting. Patient reports minimal bleeding. Patient has passed gas but no bowel movements. Patient is walking without lower extremity pain or shortness of breath. Patient desires depo for contraception and is bottle feeding. Objective Vital Signs/I&O: Vital Signs 07/29/18 15:12 07/29/18 16:26 07/29/18 16:30 Temperature 97.9 F Pulse Rate 87 85 85 Respiratory Rate 18 Blood Pressure 115/63 125/76 111/76 07/29/18 16:35 07/29/18 16:40 07/29/18 16:45 Temperature Pulse Rate 86 90 115 H Respiratory Rate 19 Blood Pressure 118/76 116/65 130/76 07/29/18 16:55 07/29/18 17:30 07/29/18 17:55 Temperature Pulse Rate 94 H 136 H Respiratory Rate 18 Blood Pressure 119/65 140/89 07/29/18 18:01 07/29/18 18:10 07/29/18 18:25 Temperature Pulse Rate 137 H 84 Respiratory Rate 18 18 Blood Pressure 111/69 98/61 L 07/29/18 18:30 07/29/18 18:40 07/29/18 18:45 Temperature Pulse Rate 82 85 Respiratory Rate 18 Blood Pressure 112/68 110/70 07/29/18 19:01 07/29/18 20:25 07/29/18 20:55 Temperature 98.3 F Pulse Rate 80 78 Respiratory Rate 18 18 Blood Pressure 89/48 L 113/71 Intake & Output 07/29/18 07/30/18 07/30/18 18:59 06:59 18:59 Weight 60.781 kg Other: Weight On Admission 60.781 kg Result Diagrams: 07/29/18 15:31 Objective Remarks: GENERAL: Well-nourished, well-developed patient. CARDIOVASCULAR: Regular rate and rhythm without murmurs, gallops, or rubs. RESPIRATORY: Breath sounds equal bilaterally. No accessory muscle use. ABDOMEN/GI: Abdomen soft, non-tender. Fundus: Firm, non-tender at umbilicus. GENITOURINARY: Light to moderate bleeding. EXTREMITIES: No cyanosis or edema, non-tender, without signs of DVT. Medications and IVs: Active Medications Acetaminophen (Tylenol) 650 mg PO Q4H PRN PRN Reason: PAIN SCALE 1 TO 2 Al Hydroxide/Mg Hydroxide (Milk Of Magnesia Liq) 30 ml PO Q12H PRN PRN Reason: Mild Constipation Benzocaine (Americaine 20% [place]) 1 spray TOPICAL Q4H PRN PRN Reason: For Perineum Discomfort Last Admin: 07/29/18 21:45 Dose: 1 spray Bisacodyl (Dulcolax Supp) 10 mg RECTAL DAILY PRN PRN Reason: SEVERE CONSITIPATION Diphenhydramine HCl (Benadryl) 25 mg PO Q6H PRN PRN Reason: ITCHING Last Admin: 07/30/18 06:20 Dose: 25 mg Ephedrine Sulfate (Ephedrine/Ns Syringe) 10 mg IV.PUSH UNSCH PRN PRN Reason: SEE LABEL COMMENTS Stop: 07/30/18 17:00 Fentanyl/Bupivacaine/Sodium Chlor (Fentanyl 2 Mcg-Bupiv 0.125% Epi) 150 mls @ 12 mls/hr EPIDURAL PRN PRN PRN Reason: for Labor Pain Last Admin: 07/29/18 18:32 Dose: 12 mls/hr Oxytocin (Pitocin 30 Units/Ns 500 Ml Premix) 30 units in 500 mls @ 100 mls/hr IV.CONT UNSCH PRN PRN Reason: Heavy bleeding Ibuprofen (Motrin) 800 mg PO Q8H PRN PRN Reason: For Cramping Last Admin: 07/30/18 06:19 Dose: 800 mg Lactulose (Lactulose Liq) 30 ml PO DAILY PRN PRN Reason: SEVERE CONSITIPATION Miscellaneous Information (Misc Information) 1 each OTHER UNSCH PRN PRN Reason: SEE LABEL COMMENTS Stop: 07/30/18 17:00 Miscellaneous Information (Misc Information) 1 each OTHER UNSCH PRN PRN Reason: SEE LABEL COMMENTS Stop: 07/30/18 17:00 Naloxone HCl (Narcan Inj) 0.1 mg IV.PUSH Q2M PRN PRN Reason: for opiate reversal Ondansetron HCl (Zofran Odt) 4 mg PO Q6H PRN PRN Reason: NAUSEA OR VOMITING Oxycodone/Acetaminophen (Percocet 5/325 Mg) 1 tab PO Q4H PRN PRN Reason: PAIN SCALE 3 TO 5 Last Admin: 07/30/18 06:20 Dose: 1 tab Oxycodone/Acetaminophen (Percocet 5/325 Mg) 2 tab PO Q4H PRN PRN Reason: PAIN SCALE 6 TO 10 Vit/Calcium/Iron/Folic Ac (Stuartnatal Plus 3) 1 tab PO DAILY MCKAYLA Senna/Docusate Sodium (Leatha-Colace) 1 tab PO BID [facility] Last Admin: 07/29/18 21:45 Dose: 1 tab Sennosides (Senokot) 17.2 mg PO Q12H PRN PRN Reason: Moderate Constipation Sodium Chloride (Ns Flush) 2 ml IV.FLUSH PRN PRN PRN Reason: FLUSH AFTER USING IV ACCESS Sodium Chloride (Ns Flush) 2 ml IV.FLUSH BID [facility] Last Admin: 07/29/18 21:45 Dose: 2 ml Witch Anais/Glycerin (Tucks Pads) 1 applicatio RECTAL QID PRN PRN Reason: HEMORRHOIDS Zolpidem Tartrate (Ambien) 5 mg PO HS PRN PRN Reason: SLEEP Assessment and Plan - Diagnosis (1) Vaginal delivery Code(s): O80 - Encounter for full-term uncomplicated delivery Status: Acute - Plan Patient is a 28-year-old delivered at 38 weeks and 2 days. Patient is day 1 after . Continue routine care. Placenta manually removed: patient confirms minimal bleeding. Minimal bleeding seen on physical exam. Motrin and Percocet when necessary for pain. Encourage OOB Pelvic rest for 6 weeks will need follow-up appointment at that time. Contraception: Depo Bottle feeding appropriately. Anticipate discharge tomorrow Discussed with Dr. Terry. - Attending Attestation The exam, history, and the medical decision-making described in the above note were completed with the assistance of the resident physician. I reviewed and agree with the findings presented. I attest that I had a [id number] encounter with the patient on the same day, and personally performed and documented my assessment and findings in the medical record. Pt seen and examined. Doing well. Bleeding normal.
[2018-07-30] MEDS ORDERED: medroxyPROGESTERone Acetate Inj 150 MG/ML Syringe IM ONE (08:51)
[2018-07-30] MEDS: Prenatal Vit/Ca/Iron/Folic Acid Tablet PO SCH (09:10)
[2018-07-30] MEDS: Senna/Docusate Sodium 8.6/50 MG Tablet PO SCH ×2 (09:10→22:44)
[2018-07-30 22:10] VITALS: RESP 18
--- NOTE | 2018-07-31 07:11 | P.PNOB ---
Subjective Post day: 2 Interval history: Patient is a 28-year-old delivered at 38 weeks and 2 days. Patient is day 2 after . Patient's pain is well-controlled on Percocet every 4 hours. Patient reports eating and drinking without any nausea or vomiting. Patient denies any SOB or chest pain. Patient reports minimal bleeding. Patient has passed gas but no bowel movements. Patient is walking without lower extremity pain or shortness of breath. Patient is formula feeding. Patient received Depo shot for contraception. Objective Vital Signs/I&O: Vital Signs 07/30/18 08:20 07/30/18 21:00 Temperature 97.9 F 97.8 F Pulse Rate 69 66 Respiratory Rate 16 18 Blood Pressure 100/63 109/69 Result Diagrams: 07/29/18 15:31 Objective Remarks: GENERAL: Well-nourished, well-developed patient. CARDIOVASCULAR: Regular rate and rhythm without murmurs, gallops, or rubs. RESPIRATORY: Breath sounds equal bilaterally. No accessory muscle use. ABDOMEN/GI: Abdomen soft, non-tender. Fundus: Firm, non-tender at umbilicus. GENITOURINARY: Light to moderate bleeding. EXTREMITIES: No cyanosis or edema, non-tender, without signs of DVT. Medications and IVs: Active Medications Acetaminophen (Tylenol) 650 mg PO Q4H PRN PRN Reason: PAIN SCALE 1 TO 2 Al Hydroxide/Mg Hydroxide (Milk Of Magnesia Liq) 30 ml PO Q12H PRN PRN Reason: Mild Constipation Benzocaine (Americaine 20% [place]) 1 spray TOPICAL Q4H PRN PRN Reason: For Perineum Discomfort Last Admin: 07/29/18 21:45 Dose: 1 spray Bisacodyl (Dulcolax Supp) 10 mg RECTAL DAILY PRN PRN Reason: SEVERE CONSITIPATION Diphenhydramine HCl (Benadryl) 25 mg PO Q6H PRN PRN Reason: ITCHING Last Admin: 07/30/18 12:49 Dose: 25 mg Fentanyl/Bupivacaine/Sodium Chlor (Fentanyl 2 Mcg-Bupiv 0.125% Epi) 150 mls @ 12 mls/hr EPIDURAL PRN PRN PRN Reason: for Labor Pain Last Admin: 07/29/18 18:32 Dose: 12 mls/hr Oxytocin (Pitocin 30 Units/Ns 500 Ml Premix) 30 units in 500 mls @ 100 mls/hr IV.CONT UNSCH PRN PRN Reason: Heavy bleeding Ibuprofen (Motrin) 800 mg PO Q8H PRN PRN Reason: For Cramping Last Admin: 07/30/18 22:45 Dose: 800 mg Lactulose (Lactulose Liq) 30 ml PO DAILY PRN PRN Reason: SEVERE CONSITIPATION Naloxone HCl (Narcan Inj) 0.1 mg IV.PUSH Q2M PRN PRN Reason: for opiate reversal Ondansetron HCl (Zofran Odt) 4 mg PO Q6H PRN PRN Reason: NAUSEA OR VOMITING Oxycodone/Acetaminophen (Percocet 5/325 Mg) 1 tab PO Q4H PRN PRN Reason: PAIN SCALE 3 TO 5 Last Admin: 07/30/18 06:20 Dose: 1 tab Oxycodone/Acetaminophen (Percocet 5/325 Mg) 2 tab PO Q4H PRN PRN Reason: PAIN SCALE 6 TO 10 Last Admin: 07/31/18 02:32 Dose: 2 tab Vit/Calcium/Iron/Folic Ac (Stuartnatal Plus 3) 1 tab PO DAILY [facility] Last Admin: 07/30/18 09:10 Dose: 1 tab Senna/Docusate Sodium (Leatha-Colace) 1 tab PO BID [facility] Last Admin: 07/30/18 22:44 Dose: 1 tab Sennosides (Senokot) 17.2 mg PO Q12H PRN PRN Reason: Moderate Constipation Sodium Chloride (Ns Flush) 2 ml IV.FLUSH PRN PRN PRN Reason: FLUSH AFTER USING IV ACCESS Sodium Chloride (Ns Flush) 2 ml IV.FLUSH BID [facility] Last Admin: 07/31/18 01:02 Dose: Not Given Witch Anais/Glycerin (Tucks Pads) 1 applicatio RECTAL QID PRN PRN Reason: HEMORRHOIDS Zolpidem Tartrate (Ambien) 5 mg PO HS PRN PRN Reason: SLEEP Assessment and Plan - Diagnosis (1) Vaginal delivery Code(s): O80 - Encounter for full-term uncomplicated delivery Status: Acute - Plan Patient is a 28-year-old delivered at 38 weeks and 2 days. Patient is day 2 after . Continue routine care. Placenta manually removed: patient confirms minimal bleeding. Motrin and Percocet when necessary for pain. Will be given Motrin Rx for discharge Encourage OOB Pelvic rest for 6 weeks will need follow-up appointment at that time. Contraception: Depo shot given Bottle feeding appropriately. Anticipate discharge today Discussed with Dr. Pacheco.
[2018-07-31 07:58] VITALS: BP 100/62; PULSE 74
[2018-07-31 07:59] VITALS: TEMP 98.2
[2018-07-31] MEDS: Senna/Docusate Sodium 8.6/50 MG Tablet PO SCH (08:56)
[2018-07-31] MEDS: Prenatal Vit/Ca/Iron/Folic Acid Tablet PO SCH (09:00)
--- NOTE | 2018-07-31 18:23 | P.OBGPN ---
Pt given PP depression scale prior to discharge. Score 17. Discussed with pt. No suicidal or homicidal ideation. She has hx PP depression with her other children. She used Zoloft at that time. She did well and would like Rx for Zoloft. Rx given. She is to f/u in 1 week. Discussed if suicidal/homicidal go to ER immediately. She understands.
== END 2018-07-31 18:32 | disposition home or self-care (01) | DRG 806 ==
LOC: HOBED 14:58 → H2E 15:20 → H1EA 20:27
PROVIDERS: ADMIT Obstetrics & Gynecology; ATTEND Obstetrics & Gynecology
CPT/HCPCS: 59025; 80307; 81001; 85025; 90471; 90658; 90686; 90715; 90772; 90782; 96372; 99283; 99285; G0008; G0481; G0483; J0690; J1050; J3010; J7120; Q2038